=== PATIENT | female | born 1985 | race Caucasian/White ===

== ENCOUNTER 2017-03-23 05:10 | Inpatient (IN) | payer BC ==
[2017-03-22 15:20] LABS: Hematocrit 38 % (35-47); Hemoglobin 12.9 g/dl (12.0-16.0); Mean Corpuscular HGB Conc 34 g/dl (31-36); Mean Corpuscular Hemoglobin 32 pg (27-31); Mean Corpuscular Volume 95 fL (80-97); Mean Platelet Volume 10 um3 (7.4-10.4); Red Blood Count 3.98 10^6/ul (4.0-5.4); Red Cell Distribution Width 13 % (10.5-15); White Blood Count 12.9 10^3/ul (3.5-10.8)
[2017-03-23] MEDS ORDERED: ceFOXitin 2 GM IVPREMIX* 2 GM/50 ML BAG ONE (05:44)
[2017-03-23] MEDS ORDERED: Sodium Citrate/Citric Acid* 15 ML UDC ONE (05:44)
[2017-03-23] MEDS ORDERED: Morphine PF AMP (0.5MG/ML)* 5 MG/10 ML AMP ONE (07:09)
[2017-03-23] MEDS ORDERED: OXYTOCIN* 10 UNITS/ML 1 ML VIAL ONE (07:11)
[2017-03-23] MEDS ORDERED: Famotidine IV* 10 MG/ML 2 ML (20 mg) ONE (07:11)
[2017-03-23] MEDS ORDERED: Phenylephrine IV* 40 MCG/ML 10 ML SYRINGE ONE (07:33)
[2017-03-23] MEDS ORDERED: Ondansetron INJ* 2 MG/ML VIAL ONE (08:02)
[2017-03-23] MEDS ORDERED: Buffered Lidocaine 0.9% SYRIN* 5 ML/SYR SYRINGE INTRADERM ONE (08:03)
[2017-03-23] MEDS ORDERED: fentaNYL* 50 MCG/ML 2 ML VIAL (100 MCG VIAL) IV PRN (08:03)
[2017-03-23] MEDS ORDERED: Sodium Citrate/Citric Acid* 15 ML UDC PO ONE (08:03)
[2017-03-23] MEDS ORDERED: Ondansetron INJ* 2 MG/ML VIAL IV PRN ×2 (08:03→08:05)
[2017-03-23] MEDS ORDERED: Naloxone* 0.4 MG/ML 1 ML VIAL IV PRN (08:05)
[2017-03-23] MEDS ORDERED: HYDROcodone/ACETAMIN 5-325 MG* 1 TAB PO PRN (08:05)
[2017-03-23] MEDS ORDERED: Scopolamine 1.5 mg* PATCH TRANSDERM PRN (08:05)
[2017-03-23] MEDS ORDERED: PROCHLORPERAZINE INJ 5 MG/ML 2 ML VIAL IV PRN (08:05)
[2017-03-23] MEDS ORDERED: Nalbuphine* 20 MG/ML 1 ML VIAL IV PRN (08:05)
[2017-03-23] MEDS ORDERED: diPHENhydraMINE IV* 50 MG/ML 1 ml VIAL (BENADRYL) IV PRN (08:05)
[2017-03-23] MEDS ORDERED: DiMENhydriNATE IV* 50 MG/ML VIAL IV PUSH PRN (08:05)
[2017-03-23] MEDS ORDERED: Ketorolac INJ* 30 MG/ML 1 ML VIAL ONE (08:10)
[2017-03-23] MEDS ORDERED: EPHEDrine (Pressors)* 50 MG/ML VIAL ONE (08:10)
[2017-03-23] MEDS ORDERED: fentaNYL* 50 MCG/ML 2 ML VIAL (100 MCG VIAL) ONE (08:17)
[2017-03-23] MEDS ORDERED: Dibucaine 1% 28.35 GM TUBE PR PRN (08:59)
[2017-03-23] MEDS ORDERED: Zolpidem TAB* 5 MG PO PRN (08:59)
[2017-03-23] MEDS ORDERED: Glycerin ADULT SUPP PR PRN (08:59)
[2017-03-23] MEDS ORDERED: Witch Hazel PAD* JAR TOPICAL PRN (08:59)
[2017-03-23] MEDS ORDERED: Oxytocin in LR* 20 UNITS/1,000 ML BAG IVPB SCH (09:00)
[2017-03-23] MEDS ORDERED: Ketorolac INJ* 30 MG/ML 1 ML VIAL IV SCH (09:00)
[2017-03-23] MEDS: HYDROcodone/ACETAMIN 5-325 MG* 1 TAB PO PRN ×3 (09:59→18:00)
[2017-03-23] MEDS: Acetaminophen TAB* 325 MG PO SCH ×4 (11:31→21:59)
[2017-03-23] MEDS: Docusate CAP* 100 MG PO SCH ×3 (11:32→20:41)
[2017-03-23] MEDS: Ketorolac INJ* 30 MG/ML 1 ML VIAL IV SCH ×2 (14:22→20:41)
[2017-03-23] MEDS: Simethicone CHEW TAB* 80 MG PO SCH ×3 (14:23→20:41)
--- NOTE | 2017-03-24 01:51 | OP ---
DATE OF OPERATION: 03/23/17 - ROOM #[id number]-115 DATE OF : 85 SURGEON: Dr. Sherwood. TUNNELLER: Dr. Carmona. ANESTHESIOLOGIST: Ok Montes MD ANESTHESIA: Spinal. PRE-OP DIAGNOSIS: Low lying placenta, desires permanent sterilization. POST-OP DIAGNOSIS: Low lying placenta, desires permanent sterilization. OPERATIVE PROCEDURE: Low transverse section and bilateral tubal ligation. ESTIMATED BLOOD LOSS: 800 cc. SPECIMEN: Includes placenta. FINDINGS: Viable female, 's were 9 and 9, weight was 7 pounds 10 ounces. Normal appearing uterus, fallopian tubes and ovaries. This is a 31-year-old who had a previous vaginal , but this had initially a placenta previa and as monitoring went on, she continued to have a low lying placenta within a centimeter of the cervical os, even just prior to having her surgery. The perinatology had recommended section and based on low lying, we decided to wait 39 weeks to for as much maturity in the baby as possible. DESCRIPTION OF PROCEDURE: The patient identified and procedure identified as a low lying placenta. The patient was taken to the operating room and prepped and draped in the usual fashion in the left lateral recumbent position under spinal anesthesia. A Pfannenstiel incision was made in the abdomen, and carried down through fat, fascia and peritoneum. A transverse incision was made in the low uterine segment over towards the left side as that was the way from the placenta. Placenta was partially entered, however, and the above was delivered through the incision with ease. The cord was doubly clamped and cut and the infant was handed to the awaiting polysomnography tech. Cord blood was obtained. Placenta delivered manually. The uterus was wiped out with a wet lap sponge. The uterine incision was then closed using 0 Polysorb in a running fashion. A second layer was used to imbricate the first layer. Good hemostasis was achieved with 0 Polysorb, figure-of- eight sutures. The right fallopian tube was grasped at the distal end, ligated x2 using 0 Polysorb and the fimbriated end was excised. The same procedure was carried out on the left after following out to its fimbriated end. The uterus was placed back into the abdominal cavity. The gutter was wiped out with a wet lap sponge. Good hemostasis was verified. The peritoneum was closed using 3-0 Polysorb in a running fashion. Good hemostasis was achieved in the subrectus layers and the fascia was closed using 0 Polysorb in a running fashion. Good hemostasis was achieved in the subcu and copious irrigation was utilized and suctioned out , and the skin was closed with 4-0 Monocryl in a subcuticular fashion. Mastisol and Steri-Strips were applied. All sponge and instrument counts were correct and the patient returned to the recovery room in stable condition. [id number]/[facility] #: [id number] [facility]
[2017-03-24] MEDS: Ketorolac INJ* 30 MG/ML 1 ML VIAL IV SCH ×2 (02:57→08:42)
[2017-03-24] MEDS: Acetaminophen TAB* 325 MG PO SCH (02:58)
[2017-03-24] MEDS ORDERED: Acetaminophen TAB* 325 MG PO PRN (05:00)
[2017-03-24] MEDS: oxyCODONE/Acetamin 5/325 MG* TAB PO PRN ×5 (06:23→22:14)
[2017-03-24 07:02] LABS: Hematocrit 29 % (35-47); Hemoglobin 9.9 g/dl (12.0-16.0); Mean Corpuscular HGB Conc 35 g/dl (31-36); Mean Corpuscular Hemoglobin 33 pg (27-31); Mean Corpuscular Volume 97 fL (80-97); Mean Platelet Volume 10 um3 (7.4-10.4); Red Blood Count 2.99 10^6/ul (4.0-5.4); Red Cell Distribution Width 13 % (10.5-15); White Blood Count 9.6 10^3/ul (3.5-10.8)
[2017-03-24] MEDS ORDERED: Scopolomine PATCH Remove* 1 NOTE MISC PATCH OFF PRN (08:05)
[2017-03-24] MEDS: Simethicone CHEW TAB* 80 MG PO SCH ×4 (08:42→20:37)
[2017-03-24] MEDS: Docusate CAP* 100 MG PO SCH ×3 (08:42→20:37)
[2017-03-24] MEDS: Ferrous Gluconate TAB* 324 MG TAB PO SCH ×2 (12:34→20:37)
[2017-03-24] MEDS: Ibuprofen TAB* 600 MG PO PRN ×2 (13:44→20:37)
[2017-03-25] MEDS: Ibuprofen TAB* 600 MG PO PRN ×3 (02:54→11:13)
[2017-03-25] MEDS: oxyCODONE/Acetamin 5/325 MG* TAB PO PRN ×2 (02:54→11:14)
[2017-03-25] MEDS: Docusate CAP* 100 MG PO SCH (08:04)
[2017-03-25] MEDS: Simethicone CHEW TAB* 80 MG PO SCH (08:04)
[2017-03-25] MEDS: Ferrous Gluconate TAB* 324 MG TAB PO SCH (08:05)
[2017-03-25 08:08] VITALS: BP 120/80
== END 2017-03-25 11:35 | disposition home or self-care (01) | DRG 540 ==
LOC: MCHOB 05:10
PROVIDERS: ADMIT Obstetrics & Gynecology; ATTEND Obstetrics & Gynecology
PROC: 10D00Z1 Extraction of Products of Conception, Low, Open Approach (ICD-10-PCS; 2017-03-23)
PROC: 0UB70ZZ Excision of Bilateral Fallopian Tubes, Open Approach (ICD-10-PCS; 2017-03-23)
PROC: 4A1HX4Z Monitoring of Products of Conception, Cardiac Electrical Activity, External Approach (ICD-10-PCS; principal; 2017-03-23 07:00)
DX: O44.43 Low lying placenta NOS or without hemorrhage, third trimester (principal); O90.81 Anemia of the puerperium; Z3A.39 39 weeks gestation of pregnancy; Z37.0 Single live birth; Z30.2 Encounter for sterilization
CPT/HCPCS: 36415; 85025; 86850; 86900; 86901; 88302; 88307; A9270-GY; J0694; J1885; J2405; J2590; J3010